=== PATIENT | female | born 1975 | race Caucasian/White ===

== ENCOUNTER 2020-05-31 02:00 | Emergency (ER) | payer SELFPAY ==
--- NOTE | 2020-05-31 03:33 | EDM.PDOC ---
ED HPI GENERAL MEDICAL PROBLEM - General Chief Complaint: Laceration Stated Complaint: LACERATION TO THE BACK OF THE HEAD Time Seen by Provider: 05/31/20 02:45 Source of Information: Reports: Patient, Family - History of Present Illness INITIAL COMMENTS - FREE TEXT/NARRATIVE: 5-year-old lady with celebrating ladies night and including some alcohol beverages and she fell backwards hitting the corner of a nightstand sustaining a bruise and laceration of the occiput. Comes for evaluation. No loss of consciousness. No visual auditory changes no other neurologic issues. Bleeding stopped on its own. 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 Vital signs were reviewed and okay. She does have matted blood on the occiput. This is clearly removed after soaking. She does have a superficial small laceration measuring a few millimeters and a contused area as well. Slight tenderness in the areas noted. General exam is otherwise unremarkable. Exam Limited By: No Limitations General Appearance: Alert, No Apparent Distress, Anxious Eye Exam: Bilateral Eye: EOMI, Normal Inspection Ears: Normal External Exam Nose: Normal Inspection Throat/Mouth: Normal Inspection Head: Other (She has about a six 4 mm approximated superficial laceration on the occiput with an adjacent bruise. Does not appear to be need need suturing up with nontender) Neck: Normal Inspection Respiratory/Chest: No Respiratory Distress Cardiovascular: Regular Rate, Rhythm GI/Abdominal: Soft Course - Vital Signs Text/Narrative:: Scalp was cleansed with saline and reviewed glue is applied followed by a band around the head and Tylenol for headache. Last Recorded V/S: Last Vital Signs Temp 36.7 C 05/31/20 02:20 Pulse 94 05/31/20 02:20 Resp 16 05/31/20 02:20 BP 137/87 05/31/20 02:20 Pulse Ox 98 05/31/20 02:20 Departure - Departure Time of Disposition: 03:30 Disposition: Home, Self-Care 01 Condition: Good Clinical Impression: Occipital scalp laceration - Discharge Information Instructions: Laceration Care, Adult, [id number], Sutures, Tomasz, or Adhesive Wound Closure, [id number] Referrals: Yuly Graff PA [Primary Care Provider] - Forms: ED Department Discharge Care Plan Goals: Wear the band around her head tonight. Use Tylenol or Motrin for headache. Return for new or worse symptoms Sepsis Event Note (ED) - Evaluation Sepsis Screening Result: No Definite Risk - Focused Exam Vital Signs: Vital Signs Temp Pulse Resp BP Pulse Ox 05/31/20 02:20 36.7 C 94 16 137/87 98
== END 2020-05-31 03:40 | disposition home or self-care (01) ==
LOC: JP.ED 02:00
DX: S01.01XA Laceration without foreign body of scalp, initial encounter (principal); W01.198A Fall on same level from slipping, tripping and stumbling with subsequent striking against other object, initial encounter
CPT/HCPCS: 12001; 99282-25